=== PATIENT | female | born 1945 | race Caucasian/White ===

== ENCOUNTER → 2023-09-06 11:13 | Outpatient (REF) | payer OTHER, SELFPAY | LOC: RAD 11:13 | PROVIDERS: ATTENDING PHYSICIAN Internal Medicine Hematology & Oncology; FAMILY PHYSICIAN Nurse Practitioner Family | DX: C78.6 Secondary malignant neoplasm of retroperitoneum and peritoneum (principal); R64 Cachexia; G89.3 Neoplasm related pain (acute) (chronic); Z79.01 Long term (current) use of anticoagulants; C18.2 Malignant neoplasm of ascending colon; E83.51 Hypocalcemia; J38.5 Laryngeal spasm; E56.9 Vitamin deficiency, unspecified | CPT/HCPCS: 71250; 74176 ==

== ENCOUNTER → 2024-03-06 12:31 | Outpatient (REF) | payer OTHER, SELFPAY | LOC: RAD 12:31 | PROVIDERS: ATTENDING PHYSICIAN Nurse Practitioner Adult Health; FAMILY PHYSICIAN Nurse Practitioner Family | DX: C78.6 Secondary malignant neoplasm of retroperitoneum and peritoneum (principal); R64 Cachexia; G89.3 Neoplasm related pain (acute) (chronic); Z79.01 Long term (current) use of anticoagulants; C18.2 Malignant neoplasm of ascending colon; E83.51 Hypocalcemia; J38.5 Laryngeal spasm; E56.9 Vitamin deficiency, unspecified | CPT/HCPCS: 76705 ==

== ENCOUNTER → 2024-03-11 12:06 | Outpatient (REF) | payer OTHER, SELFPAY | LOC: RAD 12:06 | PROVIDERS: ATTENDING PHYSICIAN Registered Nurse; FAMILY PHYSICIAN Nurse Practitioner Family | DX: C78.6 Secondary malignant neoplasm of retroperitoneum and peritoneum (principal); R64 Cachexia; G89.3 Neoplasm related pain (acute) (chronic); Z79.01 Long term (current) use of anticoagulants; C18.2 Malignant neoplasm of ascending colon; E83.51 Hypocalcemia; J38.5 Laryngeal spasm; E56.9 Vitamin deficiency, unspecified | CPT/HCPCS: 71250; 74176 ==

== ENCOUNTER 2024-03-18 19:29 | Emergency (ER) | payer OTHER, SELFPAY ==
[2024-03-18 19:32] VITALS: BP 183/81
--- NOTE | 2024-03-18 21:08 | ED.GENMED ---
History of Present Illness
General
Chief Complaint: Skin Problem
Source: patient
Exam Limitations: none
Time Seen by Provider: 03/18/24 21:00
Nursing documentation reviewed up to this point in time: agreed with
History of Present Illness
History of Present Illness:
78-year-old female presents the emergency room complaining of oozing from her right sided central chest catheter. He is use for IV hydration. She gets the fluids ordered from Dr. Genna Barnard. She denies fevers.
Past History
Past History
ED Past Medical History: Arrthythmia (Atrial fibrillation on Apixaban), Cancer (colon treated with chemotherapy), GERD, HTN, Hypercholesterolemia and Other (Anemia, iron deficiency, Hyponatremia, Diverticulitis, chronic hypomagnesemia, hypocalcemia,
septic shock August 2020); Negative Renal failure (previous acute kidney insufficiency)
ED Past Surgical History: Bowel resection (for mass November 23, 2017 with Ileostomy, right-sided colectomy) and Other (Cataracts, Ileostomy)
Social History
Tobacco: Former smoker
Alcohol: Occasional (Wine)
Drug: None
Personal:
Living: alone
Employment: Retired
Family History
Family History: CAD
Review of Systems
Review of Systems
Allergies reviewed?: Yes
All Other Systems: Not applicable
Constitutional: Reports no symptoms; Denies fever
EENT: Reports no symptoms
Respiratory: Reports no symptoms
Cardiac: Reports no symptoms
ABD/GI: Reports no symptoms
: Reports no symptoms
Musculoskeletal: Reports no symptoms
Skin: Reports other (Oozing from catheter site)
Neurological: Reports no symptoms
Endocrine: Reports no symptoms
Hematologic/Lymphatic: Reports no symptoms
Psychiatric: Reports no symptoms
Phy Exam
Physical Exam
Physical Exam:
Physical Exam
General: no apparent distress, not acutely ill
Neck: supple. no meningeal signs. normal posterior pharynx
Heart: s1/s2 regular rate and rhythm, no murmur. equal radial
pulses. Right subclavian catheter with erosions through skin, no bleeding, no signs of fever
HEENT: Pupils equal round reactive to light, EOMI
Lungs: no acute respiratory distress. clear bilaterally
Abdomen: normal bowel sounds. not tender. no CVAT
Neuro: alert and oriented. no focal neurological deficits cranial nerves II through XII intact
Skin: no rash
Psychiatric: well kept. interactive and cooperative
Extremities: no edema. no calf tenderness. negative homans. good distal pulses
Course
Vital Signs
Initial and Last Documented VS:
Initial Vital Signs
Temp Pulse Resp BP Pulse Ox
98.8 F 89 18 183/81 94
03/18/24 19:32 03/18/24 19:32 03/18/24 19:32 03/18/24 19:32 03/18/24 19:32
Last Documented Vital Signs
Temp Pulse Resp BP Pulse Ox
98.8 F 89 18 183/81 94
03/18/24 19:32 03/18/24 19:32 03/18/24 19:32 03/18/24 19:32 03/18/24 19:32
MDM/Problems Addressed
Differential Diagnosis Includes:
Catheter malfunction
MDM/Problems Addressed:
78-year-old female with a ridding central catheter. No signs of infection. Patient stable for discharge and follow-up with interventional radiology. Message sent to interventional radiology and oncology.
*Pulse Oximetry
Patient hypoxic: no
*Critical Care Note
Total Time (30-74mins, 75-104mins- exclusive of procedures): Not Applicable
Patient Management
Social determinants of health affecting care: Living situation
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
Escalation/DeEscalation of care consider admission/obs:
Admit not indicated
ED Attending Note
-
Portions of this chart may have been created with voice recognition software.� Occasional wrong word or��sound alike� substitutions may have occurred due to the inherent limitations of voice recognition software.
Discharge Plan
Departure
Patient Disposition: Home (Routine Discharge)
Date of Disposition: 03/18/24
Time of Disposition: 22:56
Patient with high blood pressure during this ER visit?: Yes
Condition: Good
Discharge Problem:
Complication of intravenous catheter site
Instructions: Central Line Catheter (DC), BLOOD PRESSURE
Prescriptions:
No Action
fluticasone propionate 1 SPRAY spray,suspension
1 spray intranasal DAILYPRN PRN (Reason: allergies/congesiton)
mirtazapine 15 MG tablet
15 mg PO Q48H
polyvinyl alcohol-povidon(PF) [Refresh Classic (PF)] 10 DROPS dropperette
2 drops BOTH EYES QIDPRN PRN (Reason: dry eyes)
cyanocobalamin (vitamin B-12) 1,000 MCG tablet
1,000 mcg PO DAILY
metoprolol succinate 25 MG tablet extended release 24 hr
25 mg PO DAILY@1500
calcitriol 0.25 MCG capsule
0.25 mcg PO DAILY
apixaban [Eliquis] 5 MG tablet
5 mg PO BID
amiodarone [Pacerone] 200 MG tablet
200 mg PO BID
loperamide 2 MG capsule
4 mg PO TID
Saline 0.9% Solution
1,000 ml IV UD
Patient Comments:
PATIENT RUNS 2 DAYS THEN 1 DAYS OFF
acetaminophen [Tylenol Arthritis] 650 MG tablet extended release
1,300 mg PO TID
cholecalciferol (vitamin D3) 2,000 UNITS tablet
50,000 units PO WEEKLY
omeprazole 40 MG capsule,delayed release(DR/EC)
40 mg PO DAILY
prochlorperazine maleate 10 MG tablet
10 mg PO Q6HPRN PRN (Reason: nausea)
magnesium oxide 400 MG tablet
800 mg PO TID Qty: 180 0RF
Referrals:
Nessa Cheney CRNP [Family Provider] -
Genna Encinas MD [Active] - Call in 1-3 days for appt
Dante Karimi DO [Active] - Call in 1-3 days for appt
Interventions
Interventions:
*Risk Screen - Suicide Last Done: 03/18/24 19:32
*General Assessment Last Done: 03/18/24 19:32
*Neglect/Abuse Screening Last Done: 03/18/24 19:32
ED-Skin Assessment Last Done: 03/18/24 21:44
Discharge Date and Time
Print Language: HAITIAN
--- NOTE | 2024-03-18 21:48 | VATNOTE ---
Called to assess patient's indwelling right chest central catheter. Patient states it was redressed today and has been 'oozing' ever since. Eroded area of skin noted ~2cm above the insertion site with catheter visible through open wound. Purulent
drainage noted. Discussed with ER MD and recommend [facility] consult for removal and replacement of CVC.
[2024-03-18 23:53] VITALS: BP 164/71
== END 2024-03-18 23:54 | disposition home or self-care (01) ==
LOC: EMR 19:29
PROVIDERS: EMERGENCY PHYSICIAN Emergency Medicine; FAMILY PHYSICIAN Nurse Practitioner Family
DX: T82.898A Other specified complication of vascular prosthetic devices, implants and grafts, initial encounter (principal); X58.XXXA Exposure to other specified factors, initial encounter; E78.00 Pure hypercholesterolemia, unspecified; I10 Essential (primary) hypertension; K21.9 Gastro-esophageal reflux disease without esophagitis; I48.91 Unspecified atrial fibrillation; Z79.01 Long term (current) use of anticoagulants; Z85.038 Personal history of other malignant neoplasm of large intestine; Z87.891 Personal history of nicotine dependence; Z90.49 Acquired absence of other specified parts of digestive tract
CPT/HCPCS: 99282

== ENCOUNTER → 2024-03-20 16:08 | Outpatient (REF) | payer OTHER, SELFPAY ==
[2024-03-20 16:30] VITALS: BP 128/99; BP_SYST 80
[2024-03-20] MEDS: ANCEF 10 IV (18:10)
[2024-03-20 18:15] VITALS: BP 164/70
== END ==
LOC: RADI 16:08
PROVIDERS: ATTENDING PHYSICIAN Internal Medicine Hematology & Oncology; FAMILY PHYSICIAN Nurse Practitioner Family
DX: T82.594A Other mechanical complication of infusion catheter, initial encounter (principal); C18.2 Malignant neoplasm of ascending colon; Y83.8 Other surgical procedures as the cause of abnormal reaction of the patient, or of later complication, without mention of misadventure at the time of the procedure
CPT/HCPCS: 36558; 36589; 76937; 77001; C1751

== ENCOUNTER → 2024-09-19 12:40 | Outpatient (REF) | payer OTHER, SELFPAY | LOC: HWRAD 12:40 | PROVIDERS: ATTENDING PHYSICIAN Registered Nurse; FAMILY PHYSICIAN Nurse Practitioner Family | DX: C78.6 Secondary malignant neoplasm of retroperitoneum and peritoneum (principal) | CPT/HCPCS: 71250; 74176 ==

== ENCOUNTER → 2024-12-04 11:13 | Outpatient (REF) | payer OTHER, SELFPAY | LOC: RAD 11:13 | PROVIDERS: ATTENDING PHYSICIAN Nurse Practitioner Family | DX: N95.0 Postmenopausal bleeding (principal) | CPT/HCPCS: 76830; 76856 ==